=== PATIENT | female | born 1980 | race Caucasian/White ===

== ENCOUNTER 2019-07-31 19:12 | Emergency (ER) | payer BC ==
[2019-07-31 20:14] LABS: ABS Lymphocytes 0.9 10^3/ul (1.0-4.8); ABS Monocytes 0.4 10^3/ul (0-0.8); ABS Neutrophils 7.3 10^3/ul (1.5-7.7); Eosinophil % 0.5 %; Hematocrit 37 % (35-47); Hemoglobin 12.5 g/dL (12.0-16.0); Lymphocyte % 10.1 %; Mean Corpuscular HGB Conc 34 g/dL (31-36); Mean Corpuscular Hemoglobin 27 pg (27-31); Mean Corpuscular Volume 81 fL (80-97); Mean Platelet Volume 7.4 fL (7.4-10.4); Platelet Count 327 10^3/uL (150-450); Red Cell Distribution Width 14 % (10-15); White Blood Count 8.7 10^3/uL (3.5-10.8)
[2019-07-31] MEDS ORDERED: Ketorolac INJ* 30 MG/ML 1 ML VIAL IV PUSH ONE (20:17)
[2019-07-31] MEDS ORDERED: Ondansetron INJ* 2 MG/ML VIAL IV ONE (20:17)
--- NOTE | 2019-07-31 20:22 | ED ---
Abdominal Pain/Female - HPI Summary HPI Summary: The patient is a 39 y/o F presenting to [facility] accompanied by with a chief complaint of sudden onset upper abdominal pain early this morning with worsening throughout the day into a constant sharp pain. She reports feeling generally unwell last night after arriving home from work, but then she went to sleep as usual. She woke up in the middle of night with a dull and aching pain in the upper abdomen. She has since developed nausea and vomiting with decreased appetite, dizziness, and CP. She denies any diarrhea, constipation, or urinary symptoms. Currently, the pain is rated 9/10 in severity. She has not experienced this pain before. No abdominal surgeries. LNMP: 07/17/19. No PMHx. Nonsmoker, no EtOH, no substance use. Medications reviewed. Allergies noted. - History of Current Complaint Chief Complaint: EDAbdPain Stated Complaint: ABDOMINAL PAIN,VOMITING PER PT Time Seen by Provider: 07/31/19 20:11 Hx Obtained From: Patient Onset/Duration: Sudden Onset, Still Present Timing: Constant Severity Initially: Mild Severity Currently: Severe Pain Intensity: 9 Pain Scale Used: 0-10 Numeric Location: Other - upper abdomen Radiates: No Character: Other: - dull and aching initially but now sharp Aggravating Factor(s): Nothing Alleviating Factor(s): Nothing Associated Signs and Symptoms: Positive: Chest Pain, Dizzy, Decreased Appetite, Nausea, Vomiting. Negative: Constipation, Urinary Symptoms, Diarrhea Allergies/Adverse Reactions: Allergies Allergy/AdvReac Type Severity Reaction Status Date / Time No Known Allergies Allergy Verified 07/31/19 19:26 PMH/Surg Hx/FS Hx/Imm Hx Cardiovascular History: Denies: Hx Hypertension Respiratory History: Denies: Hx Asthma GI History: Denies: Hx Gastroesophageal Reflux Disease - Surgical History Surgical History: None Surgery Procedure, Year, and Place: none Infectious Disease History: No Infectious Disease History: Denies: Traveled Outside the [place] in Last 30 Days - Family History Known Family History: Negative: Diabetes Review of Systems Positive: Chest Pain Positive: Abdominal Pain - upper, Vomiting, Nausea. Negative: Diarrhea, Other - constipation Genitourinary: Negative Neurological: Other - dizziness All Other Systems Reviewed And Are Negative: Yes Physical Exam - Summary Physical Exam Summary: Appearance: Well-appearing, Well-nourished, lying in bed comfortably Skin: Warm, dry, no obvious rash Eyes: sclera anicteric, no conjunctival pallor ENT: mucous membranes moist, pharynx appears normal Neck: Supple, nontender Respiratory: Clear to auscultation, no signs of respiratory distress Cardiovascular: Normal S1, S2. No murmurs. Normal distal pulses in tibial and radial bilaterally. Abdomen: Soft, nontender, normal active bowel sounds present Musculoskeletal: Normal, Strength/ROM Intact Neurological: A&Ox3, awake and alert, mentation is normal, speech is fluent and appropriate Psychiatric: affect is normal, does not appear anxious or depressed Triage Information Reviewed: Yes Vital Signs On Initial Exam: Initial Vitals Temp Pulse Resp BP Pulse Ox 96.8 F 97 18 154/90 99 07/31/19 19:24 07/31/19 19:24 07/31/19 19:24 07/31/19 19:24 07/31/19 19:24 Vital Signs Reviewed: Yes Procedures - Sedation Patient Received Moderate/Deep Sedation with Procedure: No Diagnostics - Vital Signs Vital Signs Temp Pulse Resp BP Pulse Ox 07/31/19 19:24 96.8 F 97 18 154/90 99 - Laboratory Result Diagrams: 07/31/19 20:01 07/31/19 20:01 Lab Statement: Any lab studies that have been ordered have been reviewed, and results considered in the medical decision making process. - CT Abd/Pel CT CT Interpretation Completed By: Radiologist Summary of CT Findings: Impression: 1. There is oral contrast in the distal esophagus with mild esophageal wall thickening, cannot exclude mild reflux esophagitis. 2. There is a complex cystic mass of the right ovary containing fluid, fat and calcific densities and measuring a maximum of 10.0 cm consistent with right ovarian dermoid cyst. 3. There is additional likely simple cyst of the left ovary measuring 1.6 cm. ED physician has reviewed this imaging report. - Ultrasound Gallbladder US Ultrasound Interpretation Completed By: Radiologist Summary of Ultrasound Findings: Impression: No acute sonographic pathology. ED physician has reviewed this imaging report. Re-Evaluation - Re-Evaluation First Eval Re-Evaluation Time: 20:55 Change: Improved Comment: Pain somewhat better but still in pain, nausea is well controlled Second Eval Re-Evaluation Time: 01:15 Change: Improved Comment: Pain improved with Pepcid. Discussed plan for discharge. Abdominal Pain Fem Course/Dx - Course Course Of Treatment: 39 y/o F presenting with dull and aching upper abdominal pain early this morning that has since developed into sharp pain accompanied by nausea, vomiting, decreased appetite, dizziness, and CP, but without any changes in stool or urination. Physical exam is negative for acute abnormalities. Blood work obtained without significant abnormality. Urinalysis obtained to reveals 1+ ketones. In the ED course, patient administered IV fluids , Zofran for nausea, Morphine and Toradol for pain, and Pepcid. Gallbladder ultrasound is negative for acute findings. Abdomen/Pelvic CT reveals 10cm right dermoid cyst. Dr. Rascon, INDUSTRIAL PHOTOGRAPHER, does not believe that the patient's pain is due to the dermoid cyst. Pain has improved with Pepcid. She is advised to follow up with GI. Patient understands and agrees with plan. Rx for Protonix. Dx acute abdominal pain. - Diagnoses Provider Diagnoses: Acute abdominal pain - Provider Notifications Discussed Care Of Patient With: Tali Rascon - INDUSTRIAL PHOTOGRAPHER Time Discussed With Above Provider: 23:15 Instructed by Provider To: Other - I discussed the patient's case with Dr. Rascon, and she does not believe that the patient's pain is due to the dermoid cyst. Discharge ED - Sign-Out/Discharge Documenting (check all that apply): Patient Departure - Patient will be discharged home. - Discharge Plan Condition: Improved Disposition: HOME Prescriptions: Pantoprazole TAB * [Protonix TAB*] 40 mg PO DAILY #30 tab Patient Education Materials: Acute Abdominal Pain (ED) Referrals: Megan Bradley MD [Medical Doctor] - - Billing Disposition and Condition Condition: IMPROVED Disposition: Home - Attestation Statements Document Initiated by Jessie: Yes Documenting Scribe: Dionna Ledesma Provider For Whom Jessie is Documenting (Include Credential): Dr. Ko Markham MD Scribe Attestation: Dionna Rock scribed for Dr. Ko Markham MD on 08/01/19 at 0150. Scribe Documentation Reviewed: Yes Provider Attestation: The documentation as recorded by the Dionna swartz accurately reflects the service I personally performed and the decisions made by me, Dr. Ko Markham MD Status of Scribe Document: Viewed
[2019-07-31 20:29] LABS: ALT 19 U/L (7-52); AST 20 U/L (13-39); Albumin 4.2 g/dL (3.2-5.2); Albumin/Globulin Ratio 1.4 (1-3); Alkaline Phosphatase 67 U/L (34-104); Anion Gap 7 mmol/L (2-11); BUN/Creatinine Ratio 16.7 (8-20); Blood Urea Nitrogen 15 mg/dL (6-24); CO2 Carbon Dioxide 26 mmol/L (22-32); Calcium 9.1 mg/dL (8.6-10.3); Chloride 103 mmol/L (101-111); EGFR African American 85.2 (>60); EGFR Non-African American 70.5 (>60); Globulin 2.9 g/dL (2-4); Glucose 118 mg/dL (70-100); Sodium 136 mmol/L (135-145); Total Protein 7.1 g/dL (6.4-8.9)
[2019-07-31] MEDS: NS 0.9% 1000 ML** 2,000 ML IV ONE (20:33)
[2019-07-31 20:36] LABS: HCG Pregnancy < 0.60 mIU/mL
[2019-07-31] MEDS ORDERED: Morphine 4 MG/ML VIAL (1 ml) 4 MG/ML VIAL IV ONE (20:59)
[2019-07-31] MEDS ORDERED: Iohexol 300* (CONTRAST) 10 ML SDV IV ONE (21:07)
[2019-07-31 22:21] LABS: Urine Appearance Clear; Urine Bilirubin Negative (Negative); Urine Blood Negative (Negative); Urine Color Straw; Urine Glucose Negative (Negative); Urine Ketones 1+ (Negative); Urine Nitrite Negative (Negative); Urine Protein Negative (Negative); Urine Specific Gravity 1.009 (1.010-1.030); Urine Urobilinogen Negative (Negative)
[2019-07-31] MEDS: Morphine 4 MG/ML VIAL (1 ml) 4 MG/ML VIAL IV PRN (23:16)
[2019-07-31] MEDS ORDERED: Famotidine IV* 10 MG/ML 2 ML (20 mg) IV SLOW PU ONE (23:25)
[2019-08-01] MEDS: Morphine 4 MG/ML VIAL (1 ml) 4 MG/ML VIAL IV PRN (01:22)
[2019-08-01 01:35] VITALS: BP 110/68
== END 2019-08-01 00:35 | disposition home or self-care (01) ==
LOC: ED 19:12
DX: R10.9 Unspecified abdominal pain (principal)
CPT/HCPCS: 36415; 74177; 76705; 80053; 81003; 83690; 84702; 85025; 96361; 96374; 96375; 96376; 99284; J1885; J2270; J2405; Q9967

== ENCOUNTER 2019-08-19 09:07 | Day surgery (SDC) | payer BC ==
[~2019-08-19 09:07] MED LIST: Buffered Lidocaine 1% SYRIN* 1 ML/SYRINGE INTRADERM ONE; Lactated Ringers 1000 ML Bag* 1,000 ML IV SCH
[2019-08-19] MEDS ORDERED: Buffered Lidocaine 1% SYRIN* 1 ML/SYRINGE INTRADERM ONE (10:31)
[2019-08-19] MEDS ORDERED: Lidocaine 2% PF * 5 ML VIAL ONE (11:20)
[2019-08-19] MEDS ORDERED: fentaNYL* 50 MCG/ML 2 ML VIAL (100 MCG VIAL) ONE (11:20)
[2019-08-19] MEDS ORDERED: Succinylcholine* 20 MG/ML 10 ML VIAL ONE (11:20)
[2019-08-19] MEDS ORDERED: Acetaminophen IV 1GM/100ML * 100 ML ONE (11:20)
[2019-08-19] MEDS ORDERED: Rocuronium* 10 MG/ML VIAL ONE (11:20)
[2019-08-19] MEDS ORDERED: Midazolam* 1 MG/ML 2 ML VIAL (2 MG) ONE (11:20)
[2019-08-19] MEDS ORDERED: Propofol* 10 MG/ML 20 ML BTL ONE (11:20)
[2019-08-19] MEDS ORDERED: Bupivacaine 0.25% EPI 200,000* 30 ML SDV ONE (11:33)
[2019-08-19] MEDS ORDERED: Sugammadex * 200 MG/2 ML VIAL IV PUSH ONE (12:35)
[2019-08-19] MEDS ORDERED: Naloxone* 0.4 MG/ML 1 ML VIAL IV PRN ×2 (12:58→13:33)
[2019-08-19] MEDS ORDERED: DiMENhydriNATE IV* 50 MG/ML VIAL IV PUSH PRN ×2 (12:58→13:33)
[2019-08-19] MEDS ORDERED: HYDROmorphone INJ1* 1 MG/ML SYRINGE IV PRN (12:58)
[2019-08-19] MEDS ORDERED: oxyCODONE/Acetamin 5/325 MG* TAB ONE (13:45)
[2019-08-19] MEDS ORDERED: HYDROmorphone INJ1* 1 MG/ML SYRINGE ONE (13:45)
[2019-08-19] MEDS: HYDROmorphone INJ1* 1 MG/ML SYRINGE IV PRN ×2 (13:50→14:36)
[2019-08-19] MEDS ORDERED: DiMENhydriNATE IV* 50 MG/ML VIAL ONE (15:07)
[2019-08-19 15:27] VITALS: BP 99/60
--- NOTE | 2019-08-19 22:06 | OP ---
OPERATIVE REPORT: DATE OF OPERATION: 08/19/19 DATE OF : 84 SURGEON: Stephen Smith MD STAFF DEVELOPER: Dr. Ontiveros. ANESTHESIA: General endotracheal tube. PRE-OP DIAGNOSIS: Right dermoid cyst and desires intrauterine device. POST-OP DIAGNOSIS: Right dermoid cyst and desires intrauterine device. OPERATIVE PROCEDURE: Laparoscopic right salpingo-oophorectomy and placement of IUD. ESTIMATED BLOOD LOSS: Minimal. SPECIMEN: Includes right tube and ovary. FINDINGS: There was a 10 x 12 cm right ovarian mass filled with yellow clear fluid. The rest of the uterus, the left tube and ovary, liver surface, and appendix all appeared normal. DESCRIPTION OF PROCEDURE: The patient identified, procedure identified as a laparoscopic right salpingo-oophorectomy and placement of IUD. The patient was taken to the operating room, prepped and draped in the usual fashion in the dorsal lithotomy position under general anesthesia. A single-tooth tenaculum was placed on the anterior lip of the cervix. Cervix was sounded to 8 cm. The Mirena IUD was placed without difficulty and the string was trimmed. A small infraumbilical incision was made and carried down through fat, fascia, and peritoneum. The GelPOINT Jose was applied and the GelPOINT with 3 trocar sites was used to visualize the ovary. This filled the pelvis. The LigaSure was placed on the infundibulopelvic ligament away from the BOWEL and away from the ureter and this was cauterized x3. The infundibulopelvic ligament was then incised. The broad ligament was then incised after cautery and the round ligament again, and the proximal fallopian tube was cauterized and then incised using the LigaSure. The GelPOINT bag was placed through the umbilical site and the dermoid and right ovary were placed within the bag. The bag was brought out into the incision and an incision was made in the ovary draining it of its fluid and the ovary was brought out through the incision, intact without any spillage of fluid into the abdomen. The GelPOINT was replaced and the sites of surgery were inspected and found to be hemostatic. The left ovary was inspected and found to be normal. All instruments were removed from the abdomen. The abdomen was deflated with CO2. The fascia was then closed using 0 Polysorb in a running fashion. Good hemostasis achieved in the subcuticular layers and the skin was closed with 4-0 Monocryl in a subcuticular fashion and the skin was closed with skin glue. Sponges and sponge stick were removed from the vagina. All sponge and instrument counts were correct and the patient returned to the recovery room in stable condition. [id number] #: [id number] MTDD
== END 2019-08-19 15:34 | disposition home or self-care (01) ==
LOC: OR 09:07
PROVIDERS: ATTEND Obstetrics & Gynecology
DX: D27.0 Benign neoplasm of right ovary (principal); Z30.430 Encounter for insertion of intrauterine contraceptive device; K21.9 Gastro-esophageal reflux disease without esophagitis; Z87.891 Personal history of nicotine dependence
CPT/HCPCS: 81025; 88305; A9270-GY; J0330; J1170; J1240; J2250; J2704; J3010; J7300

== ENCOUNTER 2022-07-14 10:24 | Inpatient (IN) ==
[2022-07-14] MEDS ORDERED: miSOPROStol 100 mcg TAB VAGINAL ONE (11:09)
[2022-07-14 12:57] LABS: Urine Color Straw
[2022-07-14 12:58] LABS: Urine Appearance Slightly Cloudy; Urine Bilirubin Negative (Negative); Urine Blood Negative (Negative); Urine Glucose Negative (Negative); Urine Ketones Negative (Negative); Urine Nitrite Negative (Negative); Urine Protein Negative (Negative); Urine Specific Gravity 1.015 (1.005-1.030); Urine Urobilinogen 0.2 (Negative) (Negative); Urine pH 6.5 (5.0-9.0)
[2022-07-14 13:08] LABS: Urine Benzodiazepine Screen None Detected (None Detect); Urine Cannabinoids Screen None Detected (None Detect); Urine Opiates Screen None Detected (None Detect)
[2022-07-14 13:16] LABS: ABS Eosinophils 0.1 10^3/ul (0-0.6); ABS Lymphocytes 1.1 10^3/ul (1.0-4.8); ABS Monocytes 0.6 10^3/ul (0-0.8); ABS Neutrophils 6.2 10^3/ul (1.5-7.7); Eosinophil % 0.9 %; Hematocrit 34 % (35-47); Hemoglobin 11.3 g/dL (12.0-16.0); Lymphocyte % 13.5 %; Mean Corpuscular HGB Conc 33 g/dL (31-36); Mean Corpuscular Hemoglobin 28 pg (27-31); Mean Corpuscular Volume 84 fL (80-97); Mean Platelet Volume 8.3 fL (7.4-10.4); Platelet Count 245 10^3/uL (150-450); Red Blood Count 4.05 10^6 /uL (3.70-4.87); Red Cell Distribution Width 15 % (10-15)
[2022-07-14 14:11] LABS: ALT 20 U/L (7-52); Albumin 3.4 g/dL (3.2-5.2); Albumin/Globulin Ratio 1.3 (1-3); Alkaline Phosphatase 129 U/L (35-149); Blood Urea Nitrogen 9 mg/dL (6-24); CO2 Carbon Dioxide 21 mmol/L (22-32); Calcium 8.6 mg/dL (8.6-10.3); Chloride 104 mmol/L (101-111); Globulin 2.7 g/dL (2-4); Glucose 76 mg/dL (70-100); Sodium 136 mmol/L (135-145); Total Protein 6.1 g/dL (6.4-8.9); Uric Acid 3.4 mg/dL (2.3-6.6); eGFR CKD-EPI 114.5 (>60)
[2022-07-14 14:21] LABS: Anion Gap 11 mmol/L (2-11)
[2022-07-14] MEDS ORDERED: Oxytocin in LR 20,000 MILLI.UNIT/1,000 ML BAG IV SCH ×2 (15:30→23:30)
[2022-07-14] MEDS ORDERED: Lactated Ringers 1000 ml BAG 1,000 ML IV SCH ×4 (16:00→23:45)
[2022-07-14] MEDS ORDERED: OBEPIDURAL (200 ML) 200 ML EPIDURAL ONE (20:29)
[2022-07-14] MEDS ORDERED: Lidocaine 1% VIAL 10 MG/ML VIAL 30 ML ONE (20:30)
[2022-07-14] MEDS ORDERED: EPINEPHrine SULFITE FREE 1 MG/ML ONE (20:30)
[2022-07-14] MEDS ORDERED: Sodium Citrate/Citric Acid LIQ 15 ML UDC PO PRN (21:02)
[2022-07-14] MEDS ORDERED: Lactated Ringers 1000 ml BAG 1,000 ML IV ONE (21:02)
[2022-07-14] MEDS ORDERED: Phenylephrine 40 mcg/mL 10mL (400mcg) SYRINGE IV PUSH PRN ×2 (21:02)
[2022-07-14] MEDS ORDERED: Lactated Ringers 1000 ml BAG 500 ML IV PRN (21:02)
[2022-07-14] MEDS ORDERED: OBEPIDURAL (200 ML) 200 ML EPIDURAL SCH (22:00)
[2022-07-14 22:08] LABS: Urine Appearance Clear; Urine Bilirubin Negative (Negative); Urine Blood Negative (Negative); Urine Color Straw; Urine Glucose Negative (Negative); Urine Ketones Negative (Negative); Urine Nitrite Negative (Negative); Urine Protein Negative (Negative); Urine Specific Gravity 1.015 (1.005-1.030); Urine Urobilinogen 0.2 (Negative) (Negative)
[2022-07-14] MEDS ORDERED: Dibucaine 1% OINT 28.35 GM TUBE PR PRN (23:30)
[2022-07-14] MEDS ORDERED: Witch Hazel PAD JAR TOPICAL PRN (23:30)
[2022-07-15 06:37] LABS: ABS Eosinophils 0.1 10^3/ul (0-0.6); ABS Lymphocytes 1.1 10^3/ul (1.0-4.8); ABS Monocytes 0.8 10^3/ul (0-0.8); ABS Neutrophils 9.9 10^3/ul (1.5-7.7); Eosinophil % 0.5 %; Hematocrit 33 % (35-47); Hemoglobin 11.5 g/dL (12.0-16.0); Lymphocyte % 9.4 %; Mean Corpuscular HGB Conc 35 g/dL (31-36); Mean Corpuscular Hemoglobin 28 pg (27-31); Mean Corpuscular Volume 81 fL (80-97); Platelet Count 248 10^3/uL (150-450); Red Blood Count 4.09 10^6 /uL (3.70-4.87); Red Cell Distribution Width 15 % (10-15); White Blood Count 11.9 10^3/uL (3.5-10.8)
[2022-07-16 09:30] VITALS: BP 116/69
== END 2022-07-16 12:06 | disposition home or self-care (01) | DRG 560 ==
LOC: MCHOBOUT 10:24 → MCHOB 10:40
PROVIDERS: ADMIT Midwife; ATTEND Midwife